=== PATIENT | female | born 1970 | race Caucasian/White ===

== ENCOUNTER → 2021-03-15 10:45 | Outpatient (BNVA) | payer OTHER, SELFPAY | PROVIDERS: PCP Internal Medicine; Visit Provider Anesthesiology | DX: M51.36 Other intervertebral disc degeneration, lumbar region (principal); M96.1 Postlaminectomy syndrome, not elsewhere classified; G89.4 Chronic pain syndrome | CPT/HCPCS: 99202 ==

== ENCOUNTER → 2021-03-31 08:36 | Outpatient (BNVA) | payer OTHER, SELFPAY | PROVIDERS: PCP Internal Medicine; Visit Provider Anesthesiology | DX: F11.20 Opioid dependence, uncomplicated (principal); M51.36 Other intervertebral disc degeneration, lumbar region; M96.1 Postlaminectomy syndrome, not elsewhere classified; G89.4 Chronic pain syndrome | CPT/HCPCS: 99212 ==

== ENCOUNTER → 2021-04-19 08:17 | Outpatient (BNVA) | payer OTHER, SELFPAY | PROVIDERS: PCP Internal Medicine; Visit Provider Anesthesiology | DX: Z51.81 Encounter for therapeutic drug level monitoring (principal); F11.20 Opioid dependence, uncomplicated; M51.36 Other intervertebral disc degeneration, lumbar region; M96.1 Postlaminectomy syndrome, not elsewhere classified; G89.4 Chronic pain syndrome | CPT/HCPCS: 99212 ==

== ENCOUNTER → 2021-05-17 09:09 | Outpatient (BNVA) | payer OTHER, SELFPAY | PROVIDERS: PCP Internal Medicine; Visit Provider Anesthesiology | DX: Z51.81 Encounter for therapeutic drug level monitoring (principal); F11.20 Opioid dependence, uncomplicated; M51.36 Other intervertebral disc degeneration, lumbar region; M96.1 Postlaminectomy syndrome, not elsewhere classified; G89.4 Chronic pain syndrome | CPT/HCPCS: 99212 ==

== ENCOUNTER → 2021-06-14 09:06 | Outpatient (BNVA) | payer OTHER, SELFPAY | PROVIDERS: PCP Internal Medicine; Visit Provider Anesthesiology | DX: Z51.81 Encounter for therapeutic drug level monitoring (principal); F11.20 Opioid dependence, uncomplicated; M51.36 Other intervertebral disc degeneration, lumbar region; M96.1 Postlaminectomy syndrome, not elsewhere classified; G89.4 Chronic pain syndrome | CPT/HCPCS: 99212 ==

== ENCOUNTER 2021-07-12 10:59 | Outpatient (REF) | payer OTHER, SELFPAY ==
[2021-07-12 13:48] LABS: Anion Gap 12 (12-20); Blood Urea Nitrogen 11 mg/dL (9-16); Calcium 10.2 mg/dL (8.4-10.2); Carbon Dioxide 28 mmol/L (22-29); Chloride 103 mmol/L (96-108); Creatinine Clr Calc Pharmacy 75.1; Estimated Glomerular Filt Rate > 60; Glucose Random 133 mg/dL (60-115); Sodium 139 mmol/L (135-145)
== END 2021-07-12 11:00 | disposition home or self-care (01) ==
LOC: HO.LNP 10:59
PROVIDERS: PCP Internal Medicine; Visit Provider Anesthesiology
DX: G89.4 Chronic pain syndrome (principal); M96.1 Postlaminectomy syndrome, not elsewhere classified; M51.36 Other intervertebral disc degeneration, lumbar region
CPT/HCPCS: 36415; 80048

== ENCOUNTER → 2021-08-09 09:21 | Outpatient (BNVA) | payer OTHER, SELFPAY | PROVIDERS: PCP Internal Medicine; Visit Provider Anesthesiology | DX: Z13.89 Encounter for screening for other disorder (principal) ==

== ENCOUNTER → 2021-09-13 09:10 | Outpatient (BNVA) | payer OTHER, SELFPAY | PROVIDERS: PCP Internal Medicine; Visit Provider Anesthesiology | DX: Z13.89 Encounter for screening for other disorder (principal) ==

== ENCOUNTER → 2021-11-10 08:42 | Outpatient (BNVA) | payer OTHER, SELFPAY | PROVIDERS: PCP Internal Medicine; Visit Provider Anesthesiology | DX: M51.36 Other intervertebral disc degeneration, lumbar region (principal); M96.1 Postlaminectomy syndrome, not elsewhere classified; G89.4 Chronic pain syndrome | CPT/HCPCS: 99212 ==

== ENCOUNTER → 2021-12-08 08:13 | Outpatient (BNVA) | payer OTHER, SELFPAY | PROVIDERS: PCP Internal Medicine; Visit Provider Anesthesiology | DX: M51.36 Other intervertebral disc degeneration, lumbar region (principal); M96.1 Postlaminectomy syndrome, not elsewhere classified; G89.4 Chronic pain syndrome; Z79.891 Long term (current) use of opiate analgesic | CPT/HCPCS: 99212 ==

== ENCOUNTER → 2022-01-12 09:24 | Outpatient (BNVA) | payer OTHER, SELFPAY | PROVIDERS: PCP Internal Medicine; Visit Provider Anesthesiology | DX: Z51.81 Encounter for therapeutic drug level monitoring (principal); F11.20 Opioid dependence, uncomplicated; M51.36 Other intervertebral disc degeneration, lumbar region; M96.1 Postlaminectomy syndrome, not elsewhere classified; G89.4 Chronic pain syndrome | CPT/HCPCS: 99212 ==

== ENCOUNTER → 2022-01-28 10:13 | Outpatient (BNVA) | payer OTHER, SELFPAY | PROVIDERS: PCP Internal Medicine; Visit Provider Nurse Practitioner Family | DX: G43.009 Migraine without aura, not intractable, without status migrainosus (principal); M54.2 Cervicalgia; I10 Essential (primary) hypertension | CPT/HCPCS: 99202 ==

== ENCOUNTER → 2022-02-10 09:12 | Outpatient (BNVA) | payer OTHER, SELFPAY | PROVIDERS: PCP Internal Medicine; Visit Provider Anesthesiology | DX: Z51.81 Encounter for therapeutic drug level monitoring (principal); F11.20 Opioid dependence, uncomplicated; M51.36 Other intervertebral disc degeneration, lumbar region; M96.1 Postlaminectomy syndrome, not elsewhere classified; G89.4 Chronic pain syndrome | CPT/HCPCS: 99212 ==

== ENCOUNTER → 2022-03-14 09:04 | Outpatient (BNVA) | payer OTHER, SELFPAY | PROVIDERS: PCP Internal Medicine; Visit Provider Anesthesiology | DX: Z51.81 Encounter for therapeutic drug level monitoring (principal); F11.20 Opioid dependence, uncomplicated | CPT/HCPCS: 99211 ==

== ENCOUNTER → 2022-04-07 11:14 | Outpatient (BNVA) | payer OTHER, SELFPAY | PROVIDERS: PCP Internal Medicine; Visit Provider Nurse Practitioner Family | DX: G43.009 Migraine without aura, not intractable, without status migrainosus (principal); I10 Essential (primary) hypertension | CPT/HCPCS: 99212 ==

== ENCOUNTER → 2022-04-21 09:29 | Outpatient (BNVA) | payer OTHER, SELFPAY | PROVIDERS: PCP Internal Medicine; Visit Provider Student in an Organized Health Care Education/Training Program | DX: Z51.81 Encounter for therapeutic drug level monitoring (principal); F11.20 Opioid dependence, uncomplicated; M51.36 Other intervertebral disc degeneration, lumbar region; M96.1 Postlaminectomy syndrome, not elsewhere classified; G89.4 Chronic pain syndrome | CPT/HCPCS: 99202; 99212 ==

== ENCOUNTER 2022-04-21 11:16 | Outpatient (REF) | payer OTHER, SELFPAY ==
[2022-04-21 11:45] LABS: MANUAL DIFF FLAG NO
[2022-04-21 11:52] LABS: Basophils Percent Auto 0.2 % (0-2); Eosinophils Absolute Auto 0.1 X10*3/uL (0.0-0.4); Eosinophils Percent Auto 1.2 % (0-4); Hematocrit 39.4 % (37.0-47.0); Hemoglobin 12.7 g/dl (12.0-16.0); Imm Gran Abs Auto 0.02 X10*3/uL (0.00-0.03); Imm Gran Pct Auto 0.2 % (0.0-0.4); Lymphocytes Absolute Auto 1.8 X10*3/uL (1.2-4.9); Lymphocytes Percent Auto 21.1 % (20-40); Mean Corpuscular HGB Conc 32.2 g/dl (31.0-35.0); Mean Corpuscular Hemoglobin 30.2 pg (27.0-33.0); Mean Corpuscular Volume 93.8 fL (80.0-98.0); Monocytes Absolute Auto 0.5 X10*3/uL (0.1-1.2); Monocytes Percent Auto 5.9 % (2-11); Neutrophils Percent Auto 71.4 % (45-73); Platelet Count 349 X10*3/uL (160-400); Red Cell Distribution Width 12.8 % (11.0-16.0); White Blood Count 8.3 X10*3/uL (4.8-10.8)
[2022-04-21 12:37] LABS: Erythrocyte Sedimentation Rate 13 MM/HR (0-20)
[2022-04-21 13:19] LABS: TSH reflex Free T4 0.93 uIU/mL (0.32-4.0)
[2022-04-21 13:20] LABS: Alanine Aminotransferase 14 U/L (0-31); Albumin Level 4.5 g/dL (3.5-5.0); Alkaline Phosphatase 111 U/L (39-117); Anion Gap 12 (12-20); Aspartate Amino Transferase 18 U/L (5-31); Bilirubin Total 0.7 mg/dL (0.0-1.0); Blood Urea Nitrogen 11 mg/dL (9-16); C Reactive Protein < 0.10 mg/dL (< or = 0.50); Calcium 9.7 mg/dL (8.4-10.2); Carbon Dioxide 30 mmol/L (22-29); Chloride 104 mmol/L (96-108); Estimated Glomerular Filt Rate > 60; Glucose Random 79 mg/dL (60-115); Potassium 3.6 mmol/L (3.3-5.1); Rheumatoid Factor < 13.0 IU/mL (<15.0); Sodium 142 mmol/L (135-145); Total Protein 7.5 g/dL (6.5-8.0)
[2022-04-21 14:20] LABS: Appearance Urine Clear; Color Urine Yellow; Glucose Urine UA Negative (Negative); Leukocyte Esterase Urine Small (1+) (Negative); Nitrite Urine Negative (Negative); PH 6.5 (5.0-9.0); Specific Gravity - Urine 1.015 (1.005-1.025); UMIC TRIGGER UA YES; Urine Blood Negative (Negative); Urine Ketones Negative (Negative); Urine Protein Negative (Neg-Trace)
[2022-04-21 14:29] LABS: Bacteria Urine None Seen (None Seen); Hyaline Casts Urine 0-2 /LPF (0-2); RBC Urine 0-2 /HPF (0-2); Squamous Epithelial Cell Urine 0-2 /HPF (0-2); WBC Urine 0-5 /HPF (0-5)
[2022-04-21 14:52] LABS: Creatinine Urine 81.56 mg/dL; Total Protein Urine Random < 7 mg/dL (<12)
[2022-04-22 08:45] LABS: HBS Num1 0.53 mIU/mL (0-7.99); HBc Num1 0.09 S/CO (0.00-0.79); HBsAGNum1 0.38 S/CO (0.00-0.99); Hepatitis B Core Antibody Nonreactive (Nonreactive); Hepatitis B Surface Antigen Negative (Negative); ~HepC Num1 0.14 S/CO (0.00-0.79); ~Hepatitis A Antibody IgM Nonreactive (Nonreactive); ~Hepatitis B Surface Antibody NONREACTIVE (Nonreactive); ~Hepatitis C Antibody Nonreactive (Nonreactive)
[2022-04-23 01:23] LABS: Thyroglobulin Antibodies <1 IU/mL (< or = 1); Thyroid Peroxidase Antibodies 6 IU/mL (<9)
[2022-04-23 22:18] LABS: Complement C3 136 mg/dL (83-193)
[2022-04-24 12:58] LABS: Anti Nuclear Antibody Screen NEGATIVE (NEGATIVE)
[2022-04-25 13:13] LABS: Prot Elec - Albumin 4.8 g/dL (3.8-4.8); Prot Elec - Alpha1 0.4 g/dL (0.2-0.3); Prot Elec - Alpha2 0.9 g/dL (0.5-0.9); Prot Elec - Beta 1 0.6 g/dL (0.4-0.6); Prot Elec - Beta 2 0.5 g/dL (0.2-0.5); Prot Elec - Gamma 1.1 g/dL (0.8-1.7); Prot Elec - Total Protein 8.3 g/dL (6.1-8.1)
[2022-04-25 23:28] LABS: Anti DNA DS Antibody <1 IU/mL; Antibody to SS-A Antigen <1.0 NEG AI (<1.0 NEG); Antibody to SS-B Antigen <1.0 NEG AI (<1.0 NEG); SM/Ribonucleoprotein Ab <1.0 NEG AI (<1.0 NEG); Smith Protein <1.0 NEG AI (<1.0 NEG)
[2022-04-26 12:53] LABS: PTT (LAC) Screen 29 sec (<=40)
[2022-04-26 15:18] LABS: IgA 439 mg/dL (47-310); IgG 1252 mg/dL (600-1640); IgM 65 mg/dL (50-300)
[2022-04-26 16:29] LABS: DNAds, Crithidia Antibody Negative (Negative)
[2022-04-28 07:13] LABS: Beta-2 Glycoprotein IgA <2.0 U/mL (<20.0); Beta-2 Glycoprotein IgG <2.0 U/mL (<20.0); Beta-2 Glycoprotein IgM <2.0 U/mL (<20.0)
[2022-04-29 05:03] LABS: Cardiolipin IgG Ab <2.0 GPL-U/mL; Cardiolipin IgM Ab <2.0 MPL-U/mL
[2022-04-29 13:14] LABS: Centromere Protein A Ab <11 SI (<11); Centromere Protein B Ab <11 SI (<11); Fibrillarin Ab <11 SI (<11); PM SCL 100 Ab <11 SI (<11); PM SCL 75 Ab <11 SI (<11); RNA Polymerase III RP11 Ab <11 SI (<11); RNA Polymerase III RP155 Ab <11 SI (<11); SCL-70 Extractable Nuclear Ab <11 SI (<11); Th-To Ab <11 SI (<11); U1 SNRNP RNP 70KD <11 SI (<11); U1 SNRNP RNP A <11 SI (<11); U1 SNRNP RNP C <11 SI (<11)
== END 2022-04-21 11:17 | disposition home or self-care (01) ==
LOC: HO.10HDL 11:16
PROVIDERS: Visit Provider Student in an Organized Health Care Education/Training Program
DX: M51.36 Other intervertebral disc degeneration, lumbar region (principal); M25.542 Pain in joints of left hand; M32.9 Systemic lupus erythematosus, unspecified; M34.9 Systemic sclerosis, unspecified; M25.532 Pain in left wrist; E03.9 Hypothyroidism, unspecified; G89.4 Chronic pain syndrome; E78.5 Hyperlipidemia, unspecified; D68.61 Antiphospholipid syndrome; R53.83 Other fatigue; Z11.59 Encounter for screening for other viral diseases; Z79.899 Other long term (current) drug therapy
CPT/HCPCS: 36415; 80053; 81001; 82550; 82784; 84156; 84165; 84182; 84443; 85025; 85597; 85613; 85652; 85730; 86038; 86039; 86140; 86146; 86147; 86160; 86225; 86235; 86255; 86334; 86376; 86431; 86704; 86706; 86709; 86800; 86803; 87340

== ENCOUNTER → 2022-05-19 10:32 | Outpatient (BNVA) | payer OTHER, SELFPAY | PROVIDERS: PCP Internal Medicine; Visit Provider Anesthesiology | DX: Z13.89 Encounter for screening for other disorder (principal) ==

== ENCOUNTER → 2022-06-17 08:45 | Outpatient (BNVA) | payer OTHER, SELFPAY | PROVIDERS: PCP Internal Medicine; Visit Provider Student in an Organized Health Care Education/Training Program | DX: M19.041 Primary osteoarthritis, right hand (principal); M19.042 Primary osteoarthritis, left hand | CPT/HCPCS: 99212 ==

== ENCOUNTER → 2022-06-20 09:06 | Outpatient (BNVA) | payer OTHER, SELFPAY | PROVIDERS: PCP Internal Medicine; Visit Provider Anesthesiology | DX: Z51.81 Encounter for therapeutic drug level monitoring (principal); F11.20 Opioid dependence, uncomplicated; M51.36 Other intervertebral disc degeneration, lumbar region; M96.1 Postlaminectomy syndrome, not elsewhere classified; G89.4 Chronic pain syndrome | CPT/HCPCS: 99212 ==

== ENCOUNTER → 2022-07-15 10:40 | Outpatient (BNVA) | payer OTHER, SELFPAY | PROVIDERS: PCP Internal Medicine; Visit Provider Nurse Practitioner Family | DX: Z51.81 Encounter for therapeutic drug level monitoring (principal); F11.20 Opioid dependence, uncomplicated | CPT/HCPCS: 99211 ==

== ENCOUNTER → 2022-08-11 10:08 | Outpatient (BNVA) | payer OTHER, SELFPAY | PROVIDERS: PCP Internal Medicine; Visit Provider Anesthesiology | DX: G89.4 Chronic pain syndrome (principal); M96.1 Postlaminectomy syndrome, not elsewhere classified; M51.36 Other intervertebral disc degeneration, lumbar region; Z79.891 Long term (current) use of opiate analgesic | CPT/HCPCS: 99212 ==

== ENCOUNTER → 2022-09-15 10:22 | Outpatient (BNVA) | payer OTHER, SELFPAY | PROVIDERS: PCP Internal Medicine; Visit Provider Anesthesiology | DX: Z51.81 Encounter for therapeutic drug level monitoring (principal); F11.20 Opioid dependence, uncomplicated; M51.36 Other intervertebral disc degeneration, lumbar region; M96.1 Postlaminectomy syndrome, not elsewhere classified; G89.4 Chronic pain syndrome | CPT/HCPCS: 99212 ==

== ENCOUNTER → 2022-10-19 10:36 | Outpatient (BNVA) | payer OTHER, SELFPAY | PROVIDERS: PCP Internal Medicine; Visit Provider Anesthesiology | DX: G89.4 Chronic pain syndrome (principal); M51.36 Other intervertebral disc degeneration, lumbar region; Z79.891 Long term (current) use of opiate analgesic | CPT/HCPCS: 99211 ==

== ENCOUNTER 2022-12-14 10:22 | Outpatient (REF) | payer OTHER, SELFPAY ==
[2022-12-16 13:28] LABS: Cyclic Citrullinated Peptide <16 UNITS
== END 2022-12-14 10:23 | disposition home or self-care (01) ==
LOC: HO.10HDL 10:22
PROVIDERS: Visit Provider Student in an Organized Health Care Education/Training Program
DX: M25.542 Pain in joints of left hand (principal)
CPT/HCPCS: 36415; 86200

== ENCOUNTER 2022-12-20 10:28 | Outpatient (AMB) | payer OTHER, SELFPAY ==
[2022-12-20 10:32] VITALS: BP 130/72; PULSE 68; TEMP 36.4; O2SAT 98; BMI 29.5
--- NOTE | 2022-12-20 10:32 | MHC.OFFVIS ---
Intake Vital Signs 12/20/22 10:32 Height 5 ft 1 in Weight 156 lb 1.396 oz BMI 29.5 BP 130/72 Blood Pressure Location Rt brachial Position Sitting Pulse 68 Pulse Source Pulse Oximeter Temp 97.5 F Temp Source Skin Pulse Oximetry (%) 98 Handedness Right Intake Visit Reasons: hand OA Intake Note: Pt seen today for hand OA follow up. C/o hand pain and pain all over, unable to sleep. Nutrition Technician Required: Yes Nutrition Technician Name: Arianne Figueroa Accompanied by: Self / Same As Patient Allergies doxycycline Allergy (Severe, Verified 12/20/22 10:35) Hives Medication List - Last Reconciled 12/20/22 by Veronica Munson MD acetaminophen 1,000 mg PO Q4-6H amitriptyline 100 mg PO BEDTIME ascorbic acid (vitamin C) (Vitamin C) 500 mg PO BID bisacodyl 5 mg PO DAILY PRN buspirone 7.5 mg PO BID [id number] 50-325-40 mg 1 tab PO Q6H PRN cholecalciferol (vitamin D3) 50 mcg PO DAILY citalopram 40 mg PO DAILY citalopram mg PO clonidine HCl 0.1 mg PO BID PRN 30 days clotrimazole-betamethasone 1-0.05 % appl topical cyproheptadine 4 mg PO DAILY diclofenac sodium 1% 4 grams topical QID duloxetine 60 mg PO DAILY epinephrine IM ergocalciferol (vitamin D2) 1,250 mcg PO QWEEK famotidine 20 mg PO BID PRN fluocinonide 0.05% topical BID PRN gabapentin 400 mg PO TID hydroxyzine pamoate 25 mg PO TID PRN lisinopril 20 mg PO DAILY loratadine 10 mg PO DAILY magnesium oxide 400 mg PO BEDTIME 30 days naloxegol (Movantik) 12.5 mg PO QAM 30 days omeprazole 20 mg PO DAILY ondansetron HCl 4 mg PO Q8H PRN pantoprazole 40 mg PO DAILY polyethylene glycol 3350 (Purelax) 17 grams PO DAILY propranolol ER 60 mg PO BEDTIME 30 days riboflavin (vitamin B2) 400 mg PO DAILY 30 days simethicone (Gas Relief (simethicone)) 80 mg PO Q6H PRN sucralfate 10 mL PO QID tizanidine 4 mg PO BEDTIME ubrogepant (Ubrelvy) 50 - 100 mg (0.5 - 1 x 100 mg) PO ONCE PRN 30 days ursodiol 600 mg PO DAILY zolpidem ER 12.5 mg PO BEDTIME PRN HPI HPI Comments History of Present Illness Details 52-year-old female with generalized osteoarthritis and fibromyalgia returns for follow-up. Continues to have diffuse pain everywhere in her back, neck, shoulders, hands, elbows, feet. Initial history: This is a 51-year-old female with a past medical history of degenerative disc disease of her lumbar spine, post-laminectomy syndrome, chronic pain syndrome, dyslipidemia, GERD a presents for evaluation of diffuse pain. Patient is worried about her hands changing and states that her hands look like an old lady's hand She has pain in her hands, left wrist, both elbows and both feet. Patient had carpal tunnel release surgery on her left hand more than 1 year ago. In March of 2021 she fell on her outsstretched left hand and injured it. She developed swelling in her left wrist. She was evaluated by her hand surgeon and left wrist steroid injection was performed without relief. Hands left wrist MRI was ordered but was not done yet. Patient has morning stiffness of both hands lasting about 1 hour. She has difficulty moving her left hand due to left wrist pain and stiffness. Patient states that her fingers or toes have always been cold. Today change color to purple but she denies any history of digital ulcers. [facility] Medical History Constipation due to opioid therapy Arthritis HLD (hyperlipidemia) GERD (gastroesophageal reflux disease) Anemia Depression Chronic pain syndrome Postlaminectomy syndrome, lumbar Disc degeneration, lumbar Surgical History H/O gastric bypass Hx of endoscopy H/O reduction mammoplasty History of partial hysterectomy Hx of tubal ligation History of back surgery S/P gastric sleeve procedure History of carpal tunnel surgery of right wrist Family History Mother Diabetes Asthma Hypercholesteremia Coronary artery disease Father Hypercholesteremia Hypertension Coronary artery disease Sister Lymphoma Asthma HIV (human immunodeficiency virus infection) Brother Asthma HIV (human immunodeficiency virus infection) Maternal Grandmother Diabetes Hypertension Coronary artery disease Maternal Grandfather Diabetes Hypertension Coronary artery disease Social History Alcohol intake: never Patient Tobacco Use Status: Never used Tobacco Review of Systems Const Reports fatigue and Reports weakness ENT Reports no additional complaints Musc Reports back pain, Reports arthralgias, Reports limited range of motion and Reports stiffness Neuro Reports weakness Endo Reports fatigue Physical Exam Vital Signs: Last Vital Signs Temp 97.5 F 12/20/22 10:32 Pulse 68 12/20/22 10:32 BP 130/72 12/20/22 10:32 Pulse Ox 98 12/20/22 10:32 BMI result Body Mass Index 29.5 Const General: cooperative, healthy appearing and comfortable Nutritional Appearance: overweight Limitations: ambulation with cane HEENT Head: Yes normocephalic and Yes atraumatic Mouth: moist mucous membranes Resp Effort & Inspection: normal respiratory effort and able to speak in complete sentences Extrem Other: Osteoarthritic changes of both hands with prominent Alka's and Heberden's nodes with no obvious joint swelling. Bilateral elbow pain with full extension without swelling Results Reviewed Results Reviewed: X-RAY EXAM OF HAND, 3+ VIEWS Exam Date: 06/15/2022 11:02 AM Ordering Diagnosis: Lesion of bone of hand ? Bilateral hands, 3 views of each. ? History Alka/Heberden nodules. ? There is no evidence of fractures, dislocations or abnormal soft tissue calcifications. There are degenerative changes in the DIP joints of the right 2nd and 3rd fingers and left 2nd 3rd and 4th fingers. There are minimal degenerative changes in the 1st metacarpophalangeal joints bilaterally. There is no fractures, dislocations or destructive lesions. ? CONCLUSIONS: Multisite degenerative changes as detailed. Assessment & Plan Assessment & Plan (1) Osteoarthritis of hands, bilateral: Code(s): M19.041 - Primary osteoarthritis, right hand; M19.042 - Primary osteoarthritis, left hand Plan: 51-year-old female with bilateral hand osteoarthritis presents for follow-up. Patient went occupational therapy and it was not helpful. She continues to have diffuse pain everywhere. There is definitely a component of fibromyalgia adding to her symptoms. Patient stated she has been having some weight loss. Advised patient to follow-up with her PCP (2) Chronic pain syndrome: Code(s): G89.4 - Chronic pain syndrome Plan: Discussed management of fibromyalgia with patient. Is a noninflammatory, non-autoimmune central afferent processing disorder leading to a diffuse pain syndrome. Patient has a psychiatrist and has a therapist but she would like to change her therapist. I suggested evaluation by a therapist and/or a psychiatrist. Discussed a referral for a sleep study with her PCP. Try to follow sleep hygiene practices. . Patient would benefit from increased physical activity, either through formal physical therapy or by joining a gym. Advised patient that she should start activity slowly and increase as tolerated. Consider low-impact exercises such as walking, aqua therapy stretching, yoga. Follow-up as needed Plan I spent 26 minutes reviewing patient's chart, evaluating patient, counseling patient and documenting in the chart Coding Level of Care Code Est Pt Level 4 (31031) Diagnoses Osteoarthritis of hands, bilateral M19.041; M19.042 Chronic pain syndrome G89.4
== END 2022-12-20 11:07 | disposition home or self-care (01) ==
PROVIDERS: PCP Internal Medicine; Visit Provider Student in an Organized Health Care Education/Training Program
DX: M19.041 Primary osteoarthritis, right hand (principal); M19.042 Primary osteoarthritis, left hand; G89.4 Chronic pain syndrome
CPT/HCPCS: 99214

== ENCOUNTER → 2022-12-20 10:28 | Outpatient (BNVA) | payer OTHER, SELFPAY | PROVIDERS: PCP Internal Medicine; Visit Provider Student in an Organized Health Care Education/Training Program | DX: M19.041 Primary osteoarthritis, right hand (principal); M19.042 Primary osteoarthritis, left hand; G89.4 Chronic pain syndrome; M79.7 Fibromyalgia | CPT/HCPCS: 99212 ==